=== PATIENT | male | born 1955 | race Caucasian/White ===

== ENCOUNTER 2018-04-21 01:27 | Day surgery (SDC) | payer OTHER ==
[~2018-04-21] VITALS: Ht 177.8 cm; Wt 95.7 kg
[~2018-04-21 01:27] MED LIST: LEVO75TA68 PO; OXYC-865 PO
[2018-04-21] MEDS ORDERED: PROPOFOL EMUL(*) 10MG/ML 20 ML 60 ML ONE (11:16)
[2018-04-21] MEDS ORDERED: LIDOCAINE MPF 1% 5 ML VIAL ONE (11:16)
[2018-04-21 11:32] VITALS: BP 135/81
[2018-04-21 13:16] VITALS: BP 129/80
[2018-04-21] MEDS ORDERED: LIDOCAINE/SOD BICARB 8.4% SYR ID ONE (13:20)
[2018-04-21] MEDS ORDERED: NORMOSOL R SOLN(*) 1000 ML BAG 1,000 ML IV PRN (13:20)
[2018-04-21 13:30] VITALS: BP 119/77
[2018-04-21 14:00] VITALS: BP 119/77
[2018-04-21 14:20] VITALS: BP 118/84
[2018-04-21 14:22] VITALS: BP 127/84
--- NOTE | 2018-04-21 15:59 | NUR ---
1316 PT REC'D IN SD VIA CART, SAFETY MAINTAINED, VSS, SBAR FROM Alonzo RUBY RN AND DR. BERUMEN 1330 PT STILL RESTING, VSS 1340 PT LOWERED MASK, 4L BLOW BY, UP TO SF POSITION 1350 PT TOLERATING CHEESE, CRACKERS, AND WATER 1400 VSS 1420 ORHTOSTATICS STABLE, DENIES DIZZINESS 1425 ALLOWED TO DRESS 1430 DC INSTRUCTIONS COVERED WITH PARTNER KYM 1435 REASSESSED, IV OUT, PRESSURE DRESSING APPLIED ALL 500ML REMAINING IN. 1439 WALKED PT OUT TO CARE OUTSIDE OF ADMITTING ENTRANCE, SELF TRANSFERRED TO VEHICLE WITHOUT INCIDENT, ALL BELONGINGS WITH PT, NO QUESTIONS AT THIS TIME.
== END 2018-04-21 14:39 | disposition home or self-care (01) ==
LOC: OR 01:27
PROVIDERS: ATTEND Family Medicine
DX: Z12.11 Encounter for screening for malignant neoplasm of colon (principal); K52.9 Noninfective gastroenteritis and colitis, unspecified; K57.30 Diverticulosis of large intestine without perforation or abscess without bleeding
CPT/HCPCS: 00811; 45380; 88305; J2001; J2704